=== PATIENT | female | born 1955 | race Hispanic/Latino ===

== ENCOUNTER 2022-05-29 06:20 | Day surgery (SDC) | payer OTHER ==
[2022-05-29] MEDS ORDERED: Ringers Lactate 1,000 ML IV ONE (06:52)
[2022-05-29] MEDS ORDERED: FENTANYL CITR 100 MCG/2 ML ONE (06:54)
[2022-05-29] MEDS ORDERED: propofoL 200 MG/20 ML VIAL IV ONE (06:54)
[2022-05-29] MEDS ORDERED: MIDAZOLAM HCL 2 MG/2 ML INJ ONE (06:54)
[2022-05-29] MEDS ORDERED: LIDOCAINE 2% MPF 5 ML VIAL ONE (06:54)
[2022-05-29] MEDS: LIDOCAINE 1% MPF 30 ML VIAL ONE ×2 (07:34→07:54)
[2022-05-29] MEDS ORDERED: CEFAZOLIN SODIUM 1 GM/VIAL ONE (08:15)
[2022-05-29] MEDS ORDERED: KETOROLAC 30 MG/ML INJ ONE (08:17)
[2022-05-29 08:59] VITALS: BP 132/72; TEMP 97; O2SAT 100
--- NOTE | 2022-05-29 11:11 | RAD REPORT ---
EXAM DESCRIPTION: US - Ultrasound Intraop - 05/29/2022 8:21 am FINDINGS: Limited transabdominal intraoperative sonography was performed. Images were reviewed real- time by the ordering physician. No suspicious or unexpected finding.
--- NOTE | 2022-05-29 19:12 | OP ---
Date of Procedure: 05/29/2022 Surgeon: Camila Peña MD Computer Systems Engineer: None. Preoperative Diagnoses: Postmenopausal bleeding and inadequate prior attempt for sampling. Postoperative Diagnoses: Postmenopausal bleeding, inadequate prior attempt for sampling, and possibl e Asherman syndrome. Procedure Performed: Hysteroscopy and dilation and curettage under ultrasound guidance. Pelvic ultr asound was performed which I used to guide the scope. Anesthesia: MAC plus paracervical block. Complications: None. Drains: None. Ebl: Minimal. Specimen: Endometrial curettings, which are still scant. Findings: Cavity deviated to the right. Cavity appeared to be mostly empty. There were intrauterin e adhesions noted on the lateral aspects of the cavity making the cavity more tunnel like. No intrac avitary lesions. The fundus was well visualized. Then, after the scope was used to visualize and re move, the curettage was performed with a curette under ultrasound guidance as well. There appeared t o be fatty tissue that likely replaced a prior necrotic process, unsure of the etiology of this withi n the uterine cavity. Indications: The patient is a 66-year-old year with postmenopausal bleeding. She was evaluated with a transvaginal ultrasound. The patient had a retroflexed uterus. Endometrium was 5.6 mm and there was a 3.1 cm left subserosal fundal fibroid. On office hysteroscopy, there seemed to be adequate vis ualization; however, curettage was inadequate and sample was nondiagnostic. Just small fragments of blood in fibroadipose tissue were obtained. [place] was that I was not able to get into the uterine cavity very comfortably, especially given the nature of her anatomical distortion and orientation of the uterine cavity. It was prudent to res ample the patient given her age and her symptoms to make sure that there was no missed diagnosis of e ndometrial pathology including atypia or malignancy. This was explained to the patient and the patie nt was consented for a possible ultrasound-guided hysteroscopy and D and C. She was brought to the O R today. After taking her back to the OR and placing in a supine fashion, anesthesia was given and she was carlota taylor in a dorsal lithotomy position using Vance stirrups. Vulva and vagina were prepped and draped in a sterile fashion. Speculum was placed to expose the cervix. Anterior lip injected with 1% lidocai ne with 5 cc at 12 o'clock and 4 and 8 o'clock positions, 5 cc each as well for a paracervical block. Then, a single-tooth tenaculum was placed on the anterior lip of the cervix. Cervix was slightly d eviated to the right and anterior. I went ahead and dilated the cervical canal to 10-Divehi under ul trasound guidance. Then uterine sound was placed to the top of the fundus under ultrasound guidance. I then went ahead and did hysteroscopy with direct cavity visualization. Once this was advanced to the top of the fundus, it was ensured that the entire fundus was visualized. There was scar tissue on both lateral aspects making the cavity more tunnel like. There was some fibroadipose tissue prese nt here. The scope was removed. Curettage was performed with a 0 curette and handed out for permane nt pathology. 1 g of Ancef was given to the patient while doing the procedure. She was recovered fr om anesthesia and taken to PACU in stable condition. EBL was minimal. She has 1 week followup resul ts appointment with us. LEESA/LOLITA Voice ID: [id number] Report ID: [id number]
== END 2022-05-29 09:10 | disposition home or self-care (01) ==
LOC: OR 06:20
PROVIDERS: ATTEND Obstetrics & Gynecology
PROC: 0UJD8ZZ Inspection of Uterus and Cervix, Via Natural or Artificial Opening Endoscopic (ICD-10-PCS; 2022-05-29)
PROC: 0UDB7ZX Extraction of Endometrium, Via Natural or Artificial Opening, Diagnostic (ICD-10-PCS; principal; 2022-05-29 07:30)
DX: N95.0 Postmenopausal bleeding (principal); I10 Essential (primary) hypertension; F41.9 Anxiety disorder, unspecified; Z85.528 Personal history of other malignant neoplasm of kidney
CPT/HCPCS: 76998; 88305; J0690; J2001; J2250; J2704; J3010; J7120